=== PATIENT | female | born 1995 | race Caucasian/White ===

== ENCOUNTER 2017-08-24 01:50 | Emergency (ER) | payer BC ==
[2017-08-24 01:59] VITALS: BP 118/81; PULSE 95; RESP 18; TEMP 98.2
[2017-08-24] MEDS ORDERED: LIDOCAINE 1% INJ 10MG/ML (20 ML MDV) SQ STA (03:25)
--- NOTE | 2017-08-24 03:46 | CT ---
EXAMINATION TYPE: CT brain [facility] con DATE OF EXAM: 08/24/2017 COMPARISON: None HISTORY: Fall CT DLP: 2571.50 mGycm Automated exposure control for dose reduction was used. TECHNIQUE: CT scan of the head and cervical spine are performed without contrast. FINDINGS: Ventricles of normal size. There is no mass effect nor midline shift. There is no sign of intracranial hemorrhage. The calvarium is intact. There is mucosal thickening in the left maxillary sinus. Cervical vertebra have normal spacing and alignment. Posterior elements are intact. Facet joints appe ar normal. Skull base is intact. IMPRESSION: Negative CT scan of the brain. Negative CT scan cervical spine.
--- NOTE | 2017-08-24 03:49 | CT ---
EXAMINATION TYPE: CT facial bones wo con DATE OF EXAM: 08/24/2017 COMPARISON: None HISTORY: fall pain CT DLP: 1217 mGycm Automated exposure control for dose reduction was used. TECHNIQUE: CT scan of the sinuses is performed without contrast, axial images are obtained, coronal r eformatted images are also reviewed. FINDINGS: The nasal bone is intact. The orbital margins are intact. There is no evidence of a blowout fracture. There is mucosal thickening in the ethmoid sinus. There is fluid level and mucosal thicken ing in the left maxillary sinus. The zygomatic arches appear intact. The maxilla appears intact. Temp oromandibular joints appear normal. Mandible is intact. IMPRESSION: No fracture seen. There is ethmoid and left maxillary sinusitis.
[2017-08-24] MEDS ORDERED: ACET/COD 300 MG/30 MG STARTER PACK 6 TAB BTL PO STA (04:03)
[2017-08-24] MEDS ORDERED: AMOXIC-POT CLAV 875MG STARTER 2 EACH TABLET PO STA (04:03)
[2017-08-24] MEDS ORDERED: IBUPROFEN 600 MG STARTER PACK 4 TAB BTL PO STA (04:05)
--- NOTE | 2017-08-24 04:06 | ED ---
Fall HPI - General Chief Complaint: Fall Stated Complaint: fall Time Seen by Provider: 08/24/17 02:38 Source: patient, RN notes reviewed, old records reviewed Mode of arrival: wheelchair - History of Present Illness Initial Comments: This patient is a 22 year old female, presents with friend with CC of intoxication and fall. Patient as apparently missing from friends for a short period of time this [place], and patient was [place] face [place] on [place] railroad tracks with bloody lip and mouth. She does not remember everything that happened but reports that she likely tripped over the tracks. Patient reports she chipped a tooth. No other injury or pain besides facial laceration and dental pain. - Related Data Previous Rx's Medication Instructions Recorded Acetaminophen-Codeine 300-30mg 1 tab PO Q6H PRN 3 Days #12 tablet 08/24/17 [Tylenol w/codeine #3] Amoxic-Pot Clav 875-125Mg 1 tab PO Q12HR #20 tablet 08/24/17 [Augmentin 875-125] Ibuprofen [Motrin] 600 mg PO Q8HR PRN #20 tab 08/24/17 Allergies Allergy/AdvReac Type Severity Reaction Status Date / Time No Known Allergies Allergy Verified 08/24/17 01:59 Review of Systems ROS Statement: Those systems with pertinent positive or pertinent negative responses have been documented in the HPI. ROS Other: All systems not noted in ROS Statement are negative. Past Medical History Past Medical History: No Reported History History of Any Multi-Drug Resistant Organisms: None Reported Past Surgical History: No Surgical Hx Reported Past Psychological History: Anxiety Smoking Status: Current every day smoker Past Alcohol Use History: Occasional Past Drug Use History: Marijuana General Exam - General Exam Comments Initial Comments: 22 year old female, anxious, intoxicated, and crying. Limitations: no limitations General appearance: alert, appears intoxicated Head exam: Present: atraumatic, normocephalic, normal inspection Eye exam: Present: normal appearance, PERRL, EOMI. Absent: scleral icterus, conjunctival injection, periorbital swelling ENT exam: Present: normal exam, mucous membranes moist. Absent: normal oropharynx (left inner cheek laceration, 3 cm. Through and through. ) Neck exam: Present: normal inspection. Absent: tenderness, meningismus, lymphadenopathy Respiratory exam: Present: normal lung sounds bilaterally. Absent: respiratory distress, wheezes, rales, rhonchi, stridor Cardiovascular Exam: Present: regular rate, normal rhythm, normal heart sounds. Absent: systolic murmur, diastolic murmur, rubs, gallop, clicks GI/Abdominal exam: Present: soft, normal bowel sounds. Absent: distended, tenderness, guarding, rebound, rigid Extremities exam: Present: normal inspection, full ROM, normal capillary refill. Absent: tenderness, pedal edema, joint swelling, calf tenderness Back exam: Present: normal inspection Neurological exam: Present: alert, oriented X3, CN II-XII intact Psychiatric exam: Present: normal affect, normal mood Skin exam: Present: warm, dry, intact, normal color. Absent: rash Course Vital Signs 08/24/17 01:55 Temperature 98.2 F Pulse Rate 95 Respiratory 18 Rate Blood Pressure 118/81 O2 Sat by Pulse 99 Oximetry Procedures - Laceration Laceration #1 Site: oral (left inner cheek) Size (cm): 3 Description: linear Anesthetic Used: lidocaine 1% Anesthesia Technique: local infiltration Amount (mls): 3 Pre-repair: wound explored, irrigated extensively Type of Sutures: vicryl Size of Sutures: 5-0 Number of Sutures: 3 Technique: simple, interrupted Patient Tolerated Procedure: well, no complications Laceration #2 Indication: laceration Site: lip Size (cm): 2 Description: linear Depth: simple, single layer Anesthetic Used: lidocaine 1% Anesthesia Technique: local infiltration Amount (mls): 2 Pre-repair: wound explored Type of Sutures: vicryl Size of Sutures: 6-0 Number of Sutures: 2 Technique: simple, interrupted Patient Tolerated Procedure: well, no complications Medical Decision Making - Medical Decision Making 22 year old female with ETOH intoxication presents with fall, lip and oral injury. She has broken tooth 15. Patient has a throuh and through laceration of left cheek and lip. Wound was irrigated and rapid sutures placed intraorally and 2 vicryl sutures placed externally on lip. Discussed salt water rinses, given pain medication for fractured tooth. Discussed PCP and dentist follow up.Pkaced on augmentin for infection prevention. - Radiology Data Radiology results: report reviewed No fracture noted. Ethmoid and left maxillary sinusitis. The computed tomography scan of brain negative CT of the C-spine. Disposition Clinical Impression: Laceration of oral cavity, Fractured tooth, Lip laceration Disposition: HOME SELF-CARE Condition: Good Instructions: Care For Your Stitches (ED), Laceration (ED) Additional Instructions: Please return to the emergency room in 7 to have sutures removed. Please leave wound covered for the first 24-48 hours and then leave open to air after that time. Please use clean soap and water to clean the suture area to prevent scabbing over the top of your sutures. Please watch for any signs of infection which may include but not limited to increased pain, swelling, redness, fever or chills. Please return to the emergency room if any signs of infection do occur. Please return to the emergency room for any other concerns or complications. Patient should do salt water rinses 3 times a day. Take the antibiotics as prescribed. Follow-up with her dentist as well. Return to the emergency department if any alarming signs or symptoms occur. Prescriptions: Acetaminophen-Codeine 300-30mg [Tylenol w/codeine #3] 1 tab PO Q6H PRN 3 Days # 12 tablet PRN Reason: Pain Amoxic-Pot Clav 875-125Mg [Augmentin 875-125] 1 tab PO Q12HR #20 tablet Ibuprofen [Motrin] 600 mg PO Q8HR PRN #20 tab PRN Reason: Pain Is patient prescribed a controlled substance at d/c from ED?: Yes When asked, does pt state using other controlled substances?: No If prescribed controlled substance>3 days was MAPS reviewed?: Prescribed <3 Days If opioid is for acute pain is fill amount 7 days or less?: Yes If Rx opioid, was Start Talking consent form obtained?: Yes Referrals: Dioni Connelly DO [Primary Care Provider] - 1-2 days Time of Disposition: 04:03
== END 2017-08-24 04:18 | disposition home or self-care (01) ==
LOC: EC 01:50
DX: S02.5XXA Fracture of tooth (traumatic), initial encounter for closed fracture (principal); S01.511A Laceration without foreign body of lip, initial encounter; S01.512A Laceration without foreign body of oral cavity, initial encounter; F10.120 Alcohol abuse with intoxication, uncomplicated; F17.200 Nicotine dependence, unspecified, uncomplicated; W19.XXXA Unspecified fall, initial encounter; Y92.85 Railroad track as the place of occurrence of the external cause
CPT/HCPCS: 72125; 70486; 70450; 99284; 12013; J2001